=== PATIENT | male | born 1940 | race African-American/Black ===

== ENCOUNTER 2018-05-08 09:41 | Inpatient (IN) | payer BC, MEDICARE ==
[~2018-05-08] VITALS: Ht 165.1 cm; Wt 61.7 kg
[2018-05-08] MEDS ORDERED: SODIUM CHLORIDE 0.9% 1,000 ML IV ONE (10:34)
[2018-05-08 11:17] LABS: COLOR URINE YELLOW (YELLOW); KETONES URINE NEGATIVE (NEGATIVE); LEUKOCYTE ESTERASE URINE NEGATIVE (NEGATIVE); NITRITE URINE NEGATIVE (NEGATIVE); OCCULT BLOOD URINE NEGATIVE (NEGATIVE); PH URINE 8.5 (4.5-8.0); PROTEIN URINE TRACE (NEGATIVE); SPECIFIC GRAVITY URINE 1.017 (1.005-1.030); UROBILINOGEN URINE 0.2 E.U./dL (0.2-1.0)
[2018-05-08 11:18] LABS: BASOPHILS % 0.8 % (0.0-2.0); EOSINOPHILS % 0.6 % (0.0-5.0); HEMATOCRIT. 43.5 % (42.0-52.0); HEMOGLOBIN. 14.5 g/dL (14.0-18.0); LYMPHOCYTES % 26.9 % (20.0-50.0); MEAN CORPUSCULAR HEMOGLOBIN 30.4 pg (28.0-32.0); MEAN CORPUSCULAR VOLUME 90.9 fL (80.0-94.0); MEAN PLATELET VOLUME 9.6 fl (7.4-10.4); MONOCYTES % 10.4 % (2.0-8.0); NEUTROPHILS % 61.3 % (40.0-76.0); PLATELET 228 x1000/uL (130-400); RED BLOOD CELL COUNT 4.79 mill/uL (4.7-6.1); RED CELL DISTRIBUTION WIDTH 13.6 % (11.6-14.6)
[2018-05-08 11:20] LABS: CLARITY URINE CLEAR (CLEAR)
[2018-05-08 11:23] LABS: CHLORIDE 105 mEq/L (98-107); PROTHROMBIN TIME 10.2 sec (9.1-11.1)
[2018-05-08] MEDS ORDERED: ASPIRIN 325MG EC TABLET PO ONE (12:00)
[2018-05-08] MEDS ORDERED: CLONIDINE 0.1MG TABLET PO PRN (14:30)
[2018-05-08] MEDS ORDERED: ONDANSETRON HCL 4MG/2ML INJ IV PRN (14:30)
[2018-05-08] MEDS ORDERED: ACETAMINOPHEN 325MG TABLET PO PRN (14:30)
[2018-05-08] MEDS ORDERED: LORAZEPAM 2MG/ML CPJ IM ONE (20:30)
[2018-05-08] MEDS ORDERED: OLANZAPINE 10 MG/VIAL IM ONE ×2 (20:30→20:39)
[2018-05-08] MEDS ORDERED: LORAZEPAM 2MG/ML CPJ ONE (20:37)
[2018-05-08 22:00] VITALS: BP 150/82
[2018-05-08] MEDS: AMLODIPINE 5MG TABLET PO SCH (22:30)
[2018-05-09] MEDS ORDERED: DONE5TAB7 PO (01:42)
[2018-05-09] MEDS ORDERED: LOSA25TA12 PO (01:42)
[2018-05-09 04:00] VITALS: BP 168/84
[2018-05-09] MEDS ORDERED: LORAZEPAM 2MG/ML CPJ IV PRN (04:15)
[2018-05-09 07:45] VITALS: BP 114/76
[2018-05-09 08:00] VITALS: BP 160/86
[2018-05-09 08:19] LABS: BASOPHILS % 1.1 % (0.0-2.0); HEMATOCRIT. 41.6 % (42.0-52.0); HEMOGLOBIN. 13.7 g/dL (14.0-18.0); LYMPHOCYTES % 34.4 % (20.0-50.0); MEAN CORPUSCULAR VOLUME 91.1 fL (80.0-94.0); MEAN PLATELET VOLUME 9.8 fl (7.4-10.4); MONOCYTES % 13.6 % (2.0-8.0); NEUTROPHILS % 49.9 % (40.0-76.0); PLATELET 205 x1000/uL (130-400); RED BLOOD CELL COUNT 4.57 mill/uL (4.7-6.1); RED CELL DISTRIBUTION WIDTH 13.9 % (11.6-14.6)
[2018-05-09 08:54] LABS: CHLORIDE 110 mEq/L (98-107)
[2018-05-09] MEDS: AMLODIPINE 5MG TABLET PO SCH (09:00)
[2018-05-09 12:00] VITALS: BP 168/97
[2018-05-09] MEDS ORDERED: INFLUENZA VIRUS VACCINE(AFLURIA) 0.5ML SYR IM ONE (12:00)
[2018-05-09] MEDS ORDERED: PNEUMOCOCCAL 23-VAL P-SAC VAC 0.5 ML IM ONE (12:00)
[2018-05-09] MEDS ORDERED: LOSARTAN POTASSIUM 50 MG TABLET PO SCH (13:30)
[2018-05-09 16:00] VITALS: BP 95/62
== END 2018-05-09 20:07 | disposition home or self-care (01) | DRG 74 ==
LOC: ER 09:41 → EDBEDREQ 12:42 → ENRESERV 19:18 → 6WST 22:26
PROVIDERS: ADMIT Internal Medicine; ATTEND Internal Medicine
DX: G90.8 Other disorders of autonomic nervous system (principal); F03.90 Unspecified dementia, unspecified severity, without behavioral disturbance, psychotic disturbance, mood disturbance, and anxiety; I10 Essential (primary) hypertension; Z79.82 Long term (current) use of aspirin; Z79.899 Other long term (current) drug therapy
CPT/HCPCS: 36415; 70551; 71045; 80048; 80061; 83036; 84443; 84484; 93005; 93306; 96360; 96361; 97162; 99285; J2060; J3490; J7030